=== PATIENT | female | born 1960 | race Caucasian/White ===

== ENCOUNTER 2021-06-17 13:41 | Outpatient (CLI) | payer SELFPAY ==
[2021-06-17 13:52] VITALS: BP 138/74; PULSE 88; RESP 16; TEMP 36.6; O2SAT 95; BMI 39.9
[2021-06-17] MEDS: 0.9% Saline Lock 10 ML Syringe IV (13:59)
[2021-06-17 14:44] VITALS: BP 109/66; PULSE 79; RESP 16; TEMP 36.5; O2SAT 97
[2021-06-17 15:44] VITALS: BP 129/74; PULSE 73; RESP 16; TEMP 36.6; O2SAT 97
== END 2021-06-17 15:45 | disposition home or self-care (01) ==
LOC: MS3OUT 13:42 → MS3 13:42
PROVIDERS: Referring Provider Nurse Practitioner Adult Health; Visit Provider Nurse Practitioner Adult Health
DX: Z23 Encounter for immunization (principal); U07.1 COVID-19
CPT/HCPCS: J7050; M0243; A4216; Q0244